=== PATIENT | male | born 2000 | race Caucasian/White ===

== ENCOUNTER 2021-07-21 18:59 | Emergency (ER) | payer SELFPAY ==
[2021-07-21 19:45] VITALS: BP 152/90; PULSE 86; RESP 18; TEMP 36.7; O2SAT 99; BMI 20.9
--- NOTE | 2021-07-21 22:45 | ED_ITS ---
HPI - General Adult General: Chief complaint: General Medical Stated complaint: Hernia\Holding In Time Seen by Provider: 07/21/21 22:45 History of Present Illness: Patient was lifting at work today when he felt a pull/strain in his left inguinal area. Patient has a small hernia there but seem to become worse today. Patient appears well. Patient appears no acute distress. Patient walks and ambulates without any difficulty. Review of Systems GI: Reports: abdominal pain Physical Exam Const: COMMON NORMALS: alert Resp: COMMON NORMALS: normal respiratory effort Cardio: COMMON NORMALS: regular rate and regular rhythm RATE: regular rate RHYTHM: regular rhythm GI: COMMON NORMALS: Soft to palpation and non-tender PALPATION: Yes Soft to palpation : MALE GROIN/PERINEUM EXAM: No edema, No erythema and Yes hernia (Left inguinal) Extremity: COMMON NORMALS: full ROM Neuro: SENSORIUM/ORIENTATION: Yes alert Skin: COMMON NORMALS: no rashes or lesions noted GENERAL SKIN EXAM: no rashes or lesions noted Course Vital Signs: Vital signs: Vital Signs Temperature 98.1 F 07/21/21 19:45 Pulse Rate 86 07/21/21 19:45 Respiratory Rate 18 07/21/21 19:45 Blood Pressure 152/90 07/21/21 19:45 Pulse Oximetry 99 07/21/21 19:45 MDM - General Adult Medical Decision Making 21-year-old male comes in today with complaints of left inguinal pain and discomfort after lifting a heavy object at work. On exam patient reports no pain but has a noticeable left inguinal hernia. Hernia easily reduces. No signs of redness or induration noted around the area. Hernia is nontender to touch. Differential diagnosis includes but not limited to inguinal hernia, incarcerated hernia, muscle strain. No signs of incarcerated hernia is noted at this time. Reviewed exam with patient with recommendations for follow-up with general surgery. Patient reported understanding and agreed to plan. Patient understands not to be lifting heavy objects but can maintain light duty activities. Patient was also instructed to monitor for redness, induration, fever and red flags for his hernia. Patient understood instructions and reports understanding of care plan. Discharge Plan Discharge Patient Disposition: Home Clinical Impression: Inguinal hernia of left side without obstruction or gangrene Condition: Stable Discharge Orders: Discharge ED (Routine); Ordered 07/21/21 Ordered By: Eitan Patiño Discharge Diet: Usual diet Discharge Activity: Increase activity as tolerated Patient Instructions: Inguinal Hernia (ED) Activity Restrictions/Additional Instructions: Home and rest. No heavy lifting. Drink plenty of fluids. Monitor site for signs of redness and induration and high fever. If you have any signs or symptoms as described return to the ER. Case management will contact you regarding referral to general surgery. Coding Level of Care Code ED Mill Roll Operator for Magda Weiss Time Spent (min) 20
[2021-07-21 23:20] VITALS: BP 145/78; PULSE 80; RESP 16; TEMP 36.7; O2SAT 99
--- NOTE | 2021-07-22 07:27 | DCPLANNER ---
Addendum entered by Sanna Medley 07/28/21 07:44: manager employee benefits was contacted by general surgery stating that when clinic tried to contact patient that phone number in chart is incorrect. No appointment made at this time. Original Note: manager employee benefits had message to schedule a follow up appointment for patient with general surgery. manager employee benefits emailed patients information to Brandy Jacques and Angelica at [facility] General Surgery / ENT clinic. Patients information will be printed and reviewed. Clinic will call patient with appointment information.
== END 2021-07-21 23:21 | disposition home or self-care (01) ==
PROVIDERS: Emergency Provider Nurse Practitioner Family
DX: K40.90 Unilateral inguinal hernia, without obstruction or gangrene, not specified as recurrent (principal)
CPT/HCPCS: 99282

== ENCOUNTER → 2021-09-09 15:01 | Outpatient (BNVA) | payer SELFPAY | PROVIDERS: Visit Provider Surgery | DX: Z11.52 Encounter for screening for COVID-19 (principal) | CPT/HCPCS: 87635 ==

== ENCOUNTER 2021-09-15 08:39 | Day surgery (SDC) | payer SELFPAY ==
[2021-09-14 16:16] VITALS: BMI 19.9
[2021-09-15] VITALS (12 sets, daily range): BP systolic 118–165; BP diastolic 73–108; PULSE 65–93; RESP 12–18; TEMP 36.1–36.7; O2SAT 94–100
--- NOTE | 2021-09-15 09:19 | ANES.PREANE2 ---
Pre-Anesthetic Assessment Height/Weight: Height 1.8 m Weight 64.864 kg Temp Pulse Resp BP Pulse Ox 98.0 F 93 16 139/92 99 09/15/21 08:55 09/15/21 08:55 09/15/21 08:55 09/15/21 08:55 09/15/21 08:55 Preop Diagnosis: Left Inguinal Hernia Operation Date: 09/15/21 10:20 Proposed Procedures p Inguinal Hernia Repair 78250/K40.90 Inguinal hernia of left side(Left) - Lamonte Silveira MD Familial anesthetic complications: None Was Beta Mirella taken within 24 hours: N/A Was Clonidine taken within 24 hours: N/A Last intake: Intake Last Liquid Date 09/16/21 Last Liquid Time 00:05 Last Solid Date 09/15/21 Last Solid Time 19:00 Social Tobacco and No alcohol Exam alert, oriented x 3 and regular rate & rhythm Airway Submandibular: within normal limits Cervical ROM: within normal limits Mallampati: Class II Dentition: chipped Anesthetic Plan ASA status: 2 Anesthesia: General Risk of > 500 ml blood loss (7ml/kg in children): No Medications/Allergies Home Medications Medication Instructions Recorded Confirmed Last Taken Type No Known Home Medications 09/14/21 09/14/21 Unknown History Allergies Allergy/AdvReac Type Severity Reaction Status Date / Time No Known Allergies Allergy Verified 09/14/21 16:14 [facility] Anesthesia Family History Other Cancer Diabetes Social History Smoking and tobacco status: current every day smoker (3/4 of a pack a day 5 yrs) cigarettes Packs smoked per day: 0.5 Years cigarettes smoked: 5 Data Anesthesia Cardiac Studies: No Data to Display
[2021-09-15] MEDS: acetaminophen 1,000 MG/100 ML PIGGYBACK 400 MG IV (09:30)
[2021-09-15] MEDS: sodium chloride 0.9% 1,000 ML 30 ML IV (09:35)
--- NOTE | 2021-09-15 10:37 | W.PM.OPSUD ---
Surgery/Procedure H&P Update DATE OF PROCEDURE: September 15, 2021 DATE H&P PERFORMED: 09/09/21 H&P UPDATE INFORMATION: I have reviewed H&P completed within last 30 days, I have examined patient prior to procedure and No changes to prior documentation PREOP DIAGNOSIS: Left Inguinal Hernia PRIMARY INDICATION FOR PROCEDURE: The same PLANNED PROCEDURE: Operation Date: 09/15/21 10:20 Proposed Procedures p Inguinal Hernia Repair 49071/K40.90 Inguinal hernia of left side(Left) - Lamonte Silveira MD
--- NOTE | 2021-09-15 13:05 | PM.OP ---
Operative Report Date of procedure: September 15, 2021 Pre-op diagnosis: Preop Diagnosis Left Inguinal Hernia Post-op diagnosis: Left inguinal hernia with direct and indirect component Small indentation of the right inguinal canal without distinct hernia Post-op findings: Lipoma of the left spermatic cord Procedure done: 1-Laparoscopic left inguinal hernia repair with mesh placement medium size 3D 2-Laparoscopic excision of lipoma of the cord Implants: 3D mesh placement medium size Specimens removed/disposition: Lipoma of the cord Surgeon: Lamonte Silveira MD Aircraft Cleaner: Surgical assistants Leslee and Nolvia/Leila and Brodie Circulating nurses Cindy Brandon and Vero Chinchilla Anesthesia: General (Dr. Wander De Anda CRNA and SEARCH ENGINE MARKETING STRATEGIST Jose James) Estimated blood loss: 5 Procedure: Transabdominal preperitoneal (TERENCE) approach. Patient was identified in the holding area and the correct site and side of the left groin area was marked by me prior to the procedure, patient was then transferred to the operating room where he was placed in supine position, with both arms were tucked, antibiotic was given with induction, endotracheal tube was placed per anesthesia, Zheng catheter was inserted by the circulating nurse and revealed clear urine, prep and drape of the abdomen was done under the usual sterile technique as well as the scrotal area. Time-out was done verifying the patient's name/date of /planned procedure destination after the procedure, all were in agreement. SCDs confirmed to be functioning, preoperative antibiotics administered per protocol, and beta rosalinda protocol was confirmed. A vertical skin incision of 1.2 cm was made with 11 blade knife through the supra umbilicus , incision was carried down to the subcutaneous tissue and deepened to identify the anterior fascia, two stay sutures were applied to the fascia, and safe entrance to the abdominal cavity was achieved, a Florez trocar technique safe entry to the abdominal cavity was achieved verified by using 10 mm zero degree laparoscopy, switched to a 30 degrees scope,low flow followed by a higher flow of CO2 gas up to 15 mmHg. There was no evidence of injury to intra-abdominal structures from the port entry, attention was deviated to both groins, there was a large indirect hernia defect with herniation of peritoneum and preperitoneal fat was noted on the left side, two 5 mm ports were placed on the right and left lateral aspect of the abdomen slightly above the level of the umbilicus, under direct visualization, Exparel local was injected at all trocar sites prior to incisions. Noticed a small indentation towards the right inguinal canal without distinct herniation. The peritoneum above the level of the iliopubic tract was incised to the right of the midline and dissection was performed to create a preperitoneal space medial to lateral aspect up to anterior superior iliac spine on the left side. Dissection was continued onto the medial aspect and the left spermatic was identified, there was evidence of a indirect inguinal hernia .the sac was dissected. As it applied medial to the left inferior epigastric vessels/ dissection was performed to clear the space lateral to medial to the spermatic cord and dorsomedial to it, the hernia sac was reduced and retracted far back, so there was an evidence of a small direct inguinal hernia that was dissected in addition to lipoma of the cord that was excised and sent for permanent pathology. Then a medium left 3-D mesh was rolled and placed into the abdominal cavity through the Florez port, after the mesh was introduced it was positioned to lie in the myopectineal orifice and the mesh was unrolled and this covered the entire my myope pectineal orifice. Intra-abdominal pressure was dropped to 12 mmHg to help placement of the mesh good position On the lateral aspect of the mesh extended up to the anterior superior iliac spine on the medial aspect the mesh crossed the midline onto the left side, then using absorbable tacks, placed above the iliopubic tract onto the rectus abdominis muscle on the medial aspect and also to the lateral abdominal wall superomedial to the sacroiliac spine, then the mesh was also anchored to the pubis and the Greg's ligament inferiorly. The peritoneal leaflets were then brought together to cover the mesh and isolated from the other viscera, extra tacks were used to secure the peritoneum in good position. Multiple 5 mm clips were used to approximate the peritoneal edges and some peritoneal reflection tethered by the colon were taken down with sharp dissection under direct visualization Final look demonstrated good hemostasis and the mesh in good position A total of 20 mL Exparel 40 ml Normal saline 20 ml bupivacaine 0.25% were injected at the remaining of the tacks site and trocar sites as well Final look demonstrated good hemostasis.Then the fascia on the supra umbilical fascial defect was closed using #1 PDS sutures under direct visualization using fascial closure device Malick Wang.All ports were removed,then the abdomen was desufflated. All skin incisions were closed with 4-0 Monocryl subcuticular suture and Dermabond was applied. The patient tolerated the procedure well, Zheng catheter was taken out ,got extubated and was transferred to the recovery area in stable condition All counts of instruments, needles and sponges were completed I was present for the whole entire procedure
--- NOTE | 2021-09-15 13:31 | PM.PACU ---
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
[2021-09-15] MEDS: HYDROmorphone 1 mg/mL INJ 1 mL 0.5 MG IVP (13:51)
[2021-09-15] MEDS: HYDROcodone-acetaminophen 5-325 mg Tablet 1 TAB PO (14:51)
--- NOTE | 2021-09-15 15:50 | ANE.PACU2 ---
Inpatient post-anesthesia follow up: Airway intact: Yes Vital signs: Temperature 98.1 F Pulse Rate 77 Respiratory Rate 14 Blood Pressure 158/79 Pulse Oximetry 97 Oxygen Delivery Me thod Room Air Oxygen Flow Rate 6 Fraction of Inspir ed Oxygen Hydration adequate: Yes Nausea and vomiting: No Pain level: 3 Mental status: Baseline
== END 2021-09-15 15:15 | disposition home or self-care (01) ==
PROVIDERS: Visit Provider Surgery
PROC: (CPT 49650; principal; 2021-09-15 10:10)
DX: K40.90 Unilateral inguinal hernia, without obstruction or gangrene, not specified as recurrent (principal); D17.6 Benign lipomatous neoplasm of spermatic cord; F17.210 Nicotine dependence, cigarettes, uncomplicated
CPT/HCPCS: 49650; 51702; 88304; C9290; J0690; J1100; J1170; J2405; J2704; J2710; J3010; J3490; J7030

== ENCOUNTER 2021-11-18 14:09 | Emergency (ER) | payer SELFPAY ==
[2021-11-18] VITALS (15 sets, daily range): BP systolic 106–136; BP diastolic 64–86; PULSE 74–123; RESP 14–33; TEMP 37.3; O2SAT 94–98
--- NOTE | 2021-11-18 14:29 | ECG_ITS ---
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 Measurements Intervals [place] Rate: 120 P: 81 CO: 147 QRS: 93 QRSD: 91 T: 65 QT: 288 QTc: 408 Interpretive Statements SINUS TACHYCARDIA BORDERLINE RIGHT AXIS DEVIATION [QRS AXIS > 90] ST ELEVATION, PROBABLY EARLY REPOLARIZATION [ST ELEVATION WITH NORMALLY INFLECTED T-WAVE] ABNORMAL RHYTHM ECG Compared to ECG 02/11/2015 13:49:55 ST (T wave) deviation now present Early repolarization now present Sinus rhythm no longer present Electronically Signed On 11-18-2021 19:44:13 CDT by Cliff Jaramillo M.D. [email or web address].[employer]/store/[id number]
--- NOTE | 2021-11-18 15:20 | ED_ITS ---
HPI - General Adult General: Chief complaint: Dizziness Stated complaint: patient would like 2nd opinion on earlier ER visit Time Seen by Provider: 11/18/21 15:18 History of Present Illness: Patient is a 21-year-old male with no significant past medical history presents to the emergency room for evaluation of lightheadedness and abnormal x-ray. Patient tells me that yesterday, she felt very lightheaded while standing outside of work for 5 hours. Since then, patient reports nausea vomiting and again this morning reported feeling lightheaded. Patient initially went to [facility] and had an x-ray done which showed abnormal finding was instructed to be transferred to [facility]. Patient decided to leave the hospital and come to the [facility] for second opinion on that. Patient denies any chest pain, shortness of breath, fever/chills, cough runny nose sore throat, abdominal complaints diarrhea, melena/hematochezia. Onset:yesterday afternoon Duration:ongoing Location:outside Severity:moderate Associated symptoms: Reports malaise, nausea and vomiting; Deny chest pain, dyspnea, rash or palpitations Review of Systems Const: Reports: fatigue, malaise and other (+generalized weakness); Denies: fever(s) or chills Eyes: Denies: change in vision ENMT: Denies: mouth pain Card: Denies: chest pain or palpitations Resp: Denies: dyspnea or non-productive cough GI: Reports: nausea and vomiting; Denies: abdominal pain or diarrhea : Denies: dysuria Musc: Denies: extremity pain Skin/Breast: Denies: rash or new lesions Neuro: Denies: weakness in extremities Psych: Reports: other (Normal mood) Sudeep/Lymph: Denies: easy bruising PFSH ED PFSH: Medical History Inguinal hernia of left side without obstruction or gangrene Family History Other Cancer Diabetes Social History Smoking and tobacco status: current every day smoker (3/4 of a pack a day 5 yrs) cigarettes Packs smoked per day: 0.5 Years cigarettes smoked: 5 Physical Exam Const: COMMON NORMALS: alert HENMT: COMMON NORMALS: atraumatic HEAD & SCALP: atraumatic MOUTH: moist mucous membranes not abnormal Eye: COMMON NORMALS: EOMs intact bilaterally and conjunctivae normal CONJUNCTIVA: Yes conjunctivae normal Neck/C-Spine: COMMON NORMALS: full ROM and supple Resp: COMMON NORMALS: normal respiratory effort and clear to auscultation bilaterally AUSCULTATION: clear to auscultation bilaterally Cardio: COMMON NORMALS: regular rate RATE: regular rate GI: COMMON NORMALS: Soft to palpation and non-tender PALPATION: Yes Soft to palpation Extremity: COMMON NORMALS: full ROM Neuro: SENSORIUM/ORIENTATION: Yes alert MOTOR EXAM: No Abnormal motor strength present and Other motor observations present (no focal motor deficits) Psych: COMMON NORMALS: speech normal SPEECH: Yes normal speech MOOD & AFFECT: Yes euthymic mood Course Vital Signs: Vital signs: Vital Signs Temperature 99.1 F 11/18/21 14:19 Pulse Rate 86 11/18/21 21:00 Respiratory Rate 33 H 11/18/21 21:00 Blood Pressure 124/78 11/18/21 21:30 Pulse Oximetry 97 11/18/21 21:00 MDM - General Adult Medical Decision Making 21-year-old male without any significant past medical history presenting to emergency with 2 days of lightheadedness concern for abnormal x-ray findings. Straight in our emergency room did not show any focal findings. Patient has a white count 7.8. Creatinine 0.8. AST/ALT do not appear to be elevated. No blood in the urine. Patient however is noted to have T wave inversion in 1 and aVL with initial troponin of 41. Repeat troponin of 34 with a delta of 6. HR improved after IVF. At the present time, patient did not complain of any chest pain. At 6:30pm, I discussed these findings with Dr. Les Latham who thinks that patient's presentation is likely consistent with heat exhaustion and mild signs of end-organ damage. Dr. Latham does not think this is unstable angina or NSTEMI at the present time. Dr. Latham would like patient to follow-up closely with primary care provider for repeat troponin evaluation. Patient reports feeling significantly better after 2 L of fluid. Patient is able to tolerate p.o. without any difficulty. No other focal complaints. Patient ambulate without any difficulty. Discussed troponin elevation with patient instructed patient to follow-up closely with primary care provider for repeat troponin blood work in 48 hours. EKG at 21:12 showed no TWI in I and aVL. WE will have patient follow up with closely PCP for reassessment. Rx tylenol PRN pain Disposition: Discharge. Patient counseled regarding diagnostic impression, treatment plan. Patient given ED strict return precautions to return for continuation, worsening, or development of new symptoms. Instructed to f/u w/ PCP regarding symptoms today. Patient verbalized understanding. Lab Data : 11/18/21 15:29 11/18/21 17:20 Radiology Impressions Chest X-Ray 11/18/21 15:19 Impression: Negative chest. Laboratory Results WBC 7.8 10^3/uL (4.0-10.0) 11/18/21 15: RBC 5.45 10^6/uL (4.1-5.3) H 11/18/21 15:29 Hgb 15.8 g/dL (11.7-16.6) 11/18/21 15: Hct 44.9 % (42.0-52.0) 11/18/21 15: MCV 82.4 fl (80-94) 11/18/21 15: MCH 29.0 pg (28.0-34.0) 11/18/21 15: MCHC 35.2 g/dL (30.0-36.0) 11/18/21 15:29 RDW 13.1 % (12.1-15.1) 11/18/21 15: Plt Count 196 10^3/cmm (130-400) 11/18/21 15: MPV 10.2 fL (7.4-10.4) 11/18/21 15:29 Neut % (Auto) 73.0 % 11/18/21 15:29 Lymph % (Auto) 16.8 % 11/18/21: Summers % (Auto) 9.5 % 11/18/21 15: Eos % (Auto) 0.0 % 11/18/21 15:29 Baso % (Auto) 0.4 % 11/18/21:29 Neut # (Auto) 5.70 10^3/uL (1.8-7.7) 11/18/21:29 Lymph # (Auto) 1.3 10^3/uL (0.8-4.8) 11/18/21 15:29 Summers # (Auto) 0.7 10^3/uL (0.2-0.9) 11/18/21 15:29 Eos # (Auto) 0.0 10^3/uL (0.0-0.8) 11/18/21 15:29 Baso # (Auto) 0.0 10^3/uL (0.0-0.1) 11/18/21 15: Nucleated RBC % (auto) 0 % 11/18/21 15: Nucleated RBCs # 0.0 /100WBC 11/18/21 15:29 D-Dimer 0.37 ug/mIFEU (0-0.59) 11/18/21 15:29 Sodium 133 mmol/L (136-145) L 11/18/21 17:20 Potassium 4.0 mmol/L (3.5-5.1) 11/18/21 17:20 Chloride 100 mmol/L (98-107) 11/18/21 17:20 Carbon Dioxide 22 mmol/L (22-29) 11/18/21 17:20 Anion Gap 15.0 (5-19) 11/18/21 17:20 BUN 11 mg/dL (6-20) 11/18/21 17:20 Creatinine 0.7 mg/dL (0.7-1.2) 11/18/21 17:20 GFR Calculation 139.8 mL/min (90-130) H 11/18/21 17:20 Glucose 95 mg/dL (65-115) 11/18/21 17:20 Calculated Osmolality 275 mOsm/kg (285-295) L 11/18/21 17:20 Calcium 8.2 mg/dL (8.5-10.5) L 11/18/21 17:20 Total Bilirubin 0.4 mg/dL (0.15-1.2) 11/18/21 17:20 AST 24 U/L (0-40) 11/18/21 17:20 ALT 16 U/L (0-41) 11/18/21 17:20 Alkaline Phosphatase 85 IU/L (40-130) 11/18/21 17:20 Creatine Kinase 69 U/L (39-308) 11/18/21 17:20 Troponin T Gen 5 ng/L 41 ng/L (0-15) H 11/18/21 15:29 Troponin T 120 Minute 34.87 ng/L (0-15) H 11/18/21 17:20 Delta Troponin T -6.13 ABS# (0-10) L 11/18/21 17:20 Troponin T Hi Sens 6Hr 47.55 ng/L (0-15) H 11/18/21 21:15 Troponin T Hi Sens 6Hr Delta 6.55 ng/L (0-12) 11/18/21 21:15 Total Protein 6.2 g/dL (6.6-8.7) L 11/18/21 17:20 Albumin 3.8 g/dL (3.5-5.2) 11/18/21 17:20 Globulin 2.4 g/dL (1.3-4.6) 11/18/21 17:20 Urine Color Yellow (Yellow) 11/18/21 18:10 Urine Appearance Clear (CLEAR) 11/18/21 18:10 Urine pH 5 (5-7) 11/18/21 18:10 Ur Specific Buckley 1.005 (1.005-1.030) 11/18/21 18:10 Urine Protein Neg (Negative) 11/18/21 18:10 Urine Glucose (UA) Norm (Normal) 11/18/21 18:10 Urine Ketones Negative (Negative) 11/18/21 18:10 Urine Blood Neg (Negative) 11/18/21 18:10 Urine Nitrate Negative (Negative) 11/18/21 18:10 Urine Bilirubin Neg (Negative) 11/18/21 18:10 Urine Urobilinogen Norm mg/dL (Negative) 11/18/21 18:10 Ur Leukocyte Esterase Negative (Negative) 11/18/21 18:10 Imaging Data Other Imaging: Radiologist's impression: [address] [address] XRay Report Signed Patient: Alo Ovalles Unit #: [id number] : 2000 Age/Sex: 21 / M ADM Date: 11/18/21 Loc: ER Room/Bed: Attending Dr: Ordering Provider/Ordering MD: Adrian Ramos MD Date of Service: 11/18/21 Procedure(s): XR chest 1V portable [id number] Accession Number(s): [id number] Report Number: [id number] WS: [id number] Portable AP upright chest, 11/18/2021 Clinical Data: chest pain/ light-headedness Comparison: None. Findings: No nodules, masses or effusions are seen. The heart is normal. The pulmonary vascularity is not increased. No pneumonia or pneumothorax is seen. Monitor leads are on the chest wall. XR/XR chest 1V portable [id number] Impression: Negative chest. ? Dictated By: Tiny Donnelly MD Signed By: Tiny Donnelly MD Signed Date/Time: 11/18/211537 DD/ 37 Discharge Plan Discharge Patient Disposition: Home Clinical Impression: Dehydration, Heat exhaustion Condition: Stable Prescriptions: New acetaminophen 500 mg tablet 500 mg PO Q6H PRN (Reason: pain) 5 Days Qty: 20 0RF Discharge Orders: Discharge ED (Routine); Ordered 11/18/21 Ordered By: Adrian Ramos Discharge Diet: Advance as tolerated Discharge Activity: Increase activity as tolerated Patient Instructions: Heat Exhaustion (ED) Activity Restrictions/Additional Instructions: Come back to the emergency room if you have any chest pain, fever or chills, worsening shortness of breath, worsening exertional lightheadedness, or any new or concerning complaints. Stand Alone Forms: Work/School Release Coding Level of Care Code ED Manager Cleaning for Magda Fwd Exam Comprehensive
[2021-11-18] MEDS: sodium chloride 0.9% 1,000 ML 999 ML IV ×2 (15:56→15:57)
[2021-11-18] MEDS: acetaminophen 500 mg Tablet PO (15:57)
[2021-11-18 16:11] LABS: D Dimer 0.37 ug/mIFEU (0-0.59)
[2021-11-18 16:17] LABS: Troponin T (5th) Once 41 ng/L (0-15)
[2021-11-18 16:19] LABS: Blood Urea Nitrogen 10 mg/dL (6-20); Calcium 9.2 mg/dL (8.5-10.5); Carbon Dioxide 23 mmol/L (22-29); Chloride 97 mmol/L (98-107); Glomerular Filtration Rate 119.8 mL/min (90-130); Glucose 128 mg/dL (65-115); Osmolality Calculated 279 mOsm/kg (285-295); Sodium 134 mmol/L (136-145)
[2021-11-18 16:26] LABS: Basophils % 0.4 %; Hematocrit 44.9 % (42.0-52.0); Hemoglobin 15.8 g/dL (11.7-16.6); Lymphocytes # 1.3 10^3/uL (0.8-4.8); Lymphocytes % 16.8 %; Mean Corpuscular HGB Conc 35.2 g/dL (30.0-36.0); Mean Corpuscular Volume 82.4 fl (80-94); Mean Platelet Volume 10.2 fL (7.4-10.4); Monocytes # 0.7 10^3/uL (0.2-0.9); Monocytes % 9.5 %; Nucleated Red Blood Cells % 0 %; Platelet Count 196 10^3/cmm (130-400); Red Blood Count 5.45 10^6/uL (4.1-5.3); Red Cell Distribution Width 13.1 % (12.1-15.1); White Blood Count 7.8 10^3/uL (4.0-10.0)
[2021-11-18 17:50] LABS: Troponin 5 2HR 34.87 ng/L (0-15)
[2021-11-18 17:54] LABS: Troponin 5 2HR Delta -6.13 ABS# (0-10)
[2021-11-18 18:24] LABS: Add Urine Microscopic? NO; Charge for UA Resulting for Rev
[2021-11-18 18:34] LABS: Bilirubin Urine Neg (Negative); Blood Urine Neg (Negative); Glucose Urine UA Norm (Normal); Ketones Urine Negative (Negative); Leukocyte Esterase Urine Negative (Negative); Nitrate Urine Negative (Negative); Protein Urine Neg (Negative); Specific Gravity, Urine 1.005 (1.005-1.030); Urine Appearance Clear (CLEAR); Urine Color Yellow (Yellow); Urobilinogen Urine Norm (Negative); pH Urine 5 (5-7)
--- NOTE | 2021-11-18 18:40 | ECG_ITS ---
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 Measurements Intervals [place] Rate: 79 P: 153 IN: 149 QRS: 91 QRSD: 101 T: 114 QT: 362 QTc: 416 Interpretive Statements ECTOPIC ATRIAL RHYTHM POSSIBLE LEFT ATRIAL ENLARGEMENT [-0.1mV P-WAVE IN V1/V2] BORDERLINE RIGHT AXIS DEVIATION [QRS AXIS > 90] MODERATE ST DEPRESSION [0.05+ mV ST DEPRESSION] Compared to ECG 02/11/2015 13:49:55 Ectopic atrial rhythm now present ST (T wave) deviation now present Sinus rhythm no longer present Electronically Signed On 11-18-2021 19:50:37 CDT by Cliff Jaramillo M.D. [id number]
[2021-11-18 18:47] LABS: Alanine Aminotransferase 16 U/L (0-41); Albumin Level 3.8 g/dL (3.5-5.2); Alkaline Phosphatase 85 IU/L (40-130); Blood Urea Nitrogen 11 mg/dL (6-20); Calcium 8.2 mg/dL (8.5-10.5); Carbon Dioxide 22 mmol/L (22-29); Chloride 100 mmol/L (98-107); Creatine Phosphokinase 69 U/L (39-308); Globulin 2.4 g/dL (1.3-4.6); Glomerular Filtration Rate 139.8 mL/min (90-130); Glucose 95 mg/dL (65-115); Osmolality Calculated 275 mOsm/kg (285-295); Sodium 133 mmol/L (136-145); Total Bilirubin 0.4 mg/dL (0.15-1.2); Total Protein 6.2 g/dL (6.6-8.7)
[2021-11-18 18:49] LABS: Aspartate Amino Transferase 24 U/L (0-40)
[2021-11-18 21:50] LABS: Troponin 5 6HR 47.55 ng/L (0-15)
[2021-11-18 21:52] LABS: Troponin 5 6HR Delta 6.55 ng/L (0-12)
--- NOTE | 2021-11-18 22:40 | ECG_ITS ---
[facility] Test Date: 2021-11-18 Pat Name: Alo Ovalles Department: Room: Gender: Male Manager Part: : 2000 Requested By: Adrian Ramos Order Number: [id number] Vito MD: Les Latham M.D. Measurements Intervals [place] Rate: 80 P: 74 CA: 158 QRS: 60 QRSD: 100 T: 66 QT: 368 QTc: 427 Interpretive Statements SINUS RHYTHM POSSIBLE RIGHT VENTRICULAR CONDUCTION DELAY [RSR (QR) IN V1/V2] NONSPECIFIC ST ELEVATION [0.05+ mV ST ELEVATION] Compared to ECG 11/18/2021 17:55:15 Ectopic atrial rhythm no longer present ST (T wave) deviation still present Electronically Signed On 11-19-2021 9:34:27 CDT by Les Latham M.D. [id number]
== END 2021-11-18 22:34 | disposition home or self-care (01) ==
PROVIDERS: Emergency Provider Emergency Medicine
DX: E86.0 Dehydration (principal); T67.5XXA Heat exhaustion, unspecified, initial encounter; X30.XXXA Exposure to excessive natural heat, initial encounter
CPT/HCPCS: 71045; 80048; 80053; 81003; 82550; 84484; 85025; 85378; 93005; 99284; J7030

== ENCOUNTER 2021-11-19 13:04 | Outpatient (CLI) | payer SELFPAY ==
[2021-11-19 13:48] LABS: Troponin T (5th) Once 115 ng/L (0-15)
== END 2021-11-19 13:05 | disposition home or self-care (01) ==
LOC: LAB 13:06
PROVIDERS: Visit Provider Family Medicine
DX: R94.31 Abnormal electrocardiogram [ECG] [EKG] (principal); R77.8 Other specified abnormalities of plasma proteins
CPT/HCPCS: 84484

== ENCOUNTER → 2022-02-01 14:12 | Outpatient (BNVA) | payer SELFPAY | PROVIDERS: Visit Provider Internal Medicine Cardiovascular Disease | DX: R00.2 Palpitations (principal); I10 Essential (primary) hypertension; R07.9 Chest pain, unspecified; R77.8 Other specified abnormalities of plasma proteins; F17.200 Nicotine dependence, unspecified, uncomplicated; F12.10 Cannabis abuse, uncomplicated | CPT/HCPCS: 36415; 80048; 83735; 84484 ==